=== PATIENT | female | born 2000 | race Caucasian/White ===

== ENCOUNTER 2023-05-24 22:33 | Day surgery (SDC) | payer SELFPAY ==
[2023-05-24] MEDS ORDERED: hydrALAZINE 20 MG/ML VIAL SLOW IVP PRN (23:42)
[2023-05-24 23:53] VITALS: BMI 25.4
[2023-05-24] MEDS ORDERED: Promethazine HCl 25 MG/ML VIAL IM PRN (23:59)
[2023-05-25] MEDS ORDERED: Meperidine HCl/PF 25 MG/ML VIAL IM SCH (00:15)
== END 2023-05-25 00:25 | disposition home or self-care (01) ==
LOC: CSHLD/OP 22:33
PROVIDERS: ATTEND Obstetrics & Gynecology
DX: O47.1 False labor at or after 37 completed weeks of gestation (principal); O99.820 Streptococcus B carrier state complicating pregnancy; Z79.899 Other long term (current) drug therapy; Z3A.37 37 weeks gestation of pregnancy
CPT/HCPCS: 96372; 99282; J2175; J2550

== ENCOUNTER 2023-06-03 05:25 | Inpatient (IN) | payer OTHER ==
[~2023-06-03 05:25] MED LIST: HYDROcodone/Acetaminophen 5/325 mg Tablet PO PRN; Ibuprofen 800 MG TAB PO PRN; Lactated Ringer's 1,000 ML IV SCH; Lidocaine 1% (PF) 30 ML VIAL SC PRN; Methylergonovine 0.2 MG/ML VIAL IM PRN; Misoprostol 200 MCG TAB PR PRN; Ondansetron PF 4 MG/2 ML Vial IVP PRN; Oxytocin 30 units/NS 500 ML 500 ML IV SCH; Promethazine HCl 25 MG/ML VIAL IM PRN; fentaNYL 50 mcg/mL 1 mL Vial SLOW IVP PRN; hydrALAZINE 20 MG/ML VIAL SLOW IVP PRN
[2023-06-03 05:53] VITALS: BMI 25.4
[2023-06-03 06:45] LABS: Hematocrit 32.8 % (34.9-44.5); Hemoglobin 10.8 g/dL (12.0-15.5); Mean Corpuscular HGB CONC 32.9 g/dL (32.0-36.0); Mean Corpuscular Hemoglobin 27.7 pg (27.0-33.0); Mean Corpuscular Volume 84.1 fl (81.6-98.3); Mean Platelet Volume 10.1 fl (7.4-10.4); Platelet Count 224 10x3/uL (150-450); RBC Distribution Width 13.7 % (11.5-14.5); White Blood Cell (WBC) Count 11.2 10x3/uL (3.5-10.5)
[2023-06-03 07:32] LABS: HBSAg Index 0.17 S/CO (0-0.99); Hep B Surf Ag - L&D Non-Reactive S/CO (NonReactive); Syphilis Antibody Nonreactive (Nonreactive); Syphilis Antibody Index 0.05 S/CO (<1.00 Non-Reactive)
[2023-06-03] MEDS ORDERED: Bupivacaine 0.25% HCL 30 ML VIAL ONE (08:00)
[2023-06-03] MEDS ORDERED: fentaNYL/Ropivacaine Epidural 100 ML ONE (09:52)
[2023-06-03] MEDS ORDERED: Ondansetron PF 4 MG/2 ML Vial IVP PRN (10:30)
[2023-06-03] MEDS ORDERED: Acetaminophen 325 MG TAB PO PRN (10:30)
[2023-06-03] MEDS ORDERED: Communication Order-Pharmacy FS SCH (10:30)
[2023-06-03] MEDS ORDERED: diphenhydrAMINE 50 MG/ML VIAL IVP PRN (10:30)
[2023-06-03] MEDS ORDERED: Lactated Ringer's 500 ML IV PRN (10:30)
[2023-06-03] MEDS ORDERED: Moisturizing Cream (Eucerin) 113 GM JAR TOP PRN (10:30)
[2023-06-03] MEDS ORDERED: Promethazine HCl 25 MG/ML VIAL IM PRN (10:30)
[2023-06-03] MEDS ORDERED: ePHEDrine Sulfate 50 MG/10 ML VIAL SLOW IVP PRN (10:30)
[2023-06-03] MEDS ORDERED: fentaNYL 2 mcg/Ropivacaine 0.2% Epidural 100 ML CADD EPIDURAL SCH (10:30)
[2023-06-03] MEDS ORDERED: Naloxone HCl 0.4 mg/ml Vial IVP PRN ×2 (10:30)
[2023-06-03] MEDS ORDERED: Boostrix 0.5 ML (Tdap) VIAL (>/=7 yrs of age) IM ONE (15:50)
[2023-06-03] MEDS ORDERED: Bisacodyl 10 MG SUPP PR PRN (15:50)
[2023-06-03] MEDS ORDERED: Milk Of Magnesia 30 ML UDCUP PO PRN (15:50)
[2023-06-03] MEDS ORDERED: Benzocaine-Menthol 82.5 ML CAN TOP PRN (15:50)
[2023-06-03] MEDS ORDERED: Oxytocin 30 units/NS 500 ML 500 ML IV SCH (15:50)
[2023-06-03] MEDS ORDERED: Lanolin Ointment 7 GM TUBE TOP PRN (15:50)
[2023-06-03] MEDS ORDERED: HYDROcodone/Acetaminophen 5/325 mg Tablet PO PRN (15:50)
[2023-06-03] MEDS ORDERED: Ibuprofen 800 MG TAB PO SCH ×2 (15:50→22:00)
[2023-06-03] MEDS ORDERED: hydrALAZINE 20 MG/ML VIAL SLOW IVP PRN (15:50)
[2023-06-03] MEDS: Ferrous Sulfate 325 MG TAB PO SCH (18:25)
[2023-06-03] MEDS: HYDROcodone/Acetaminophen 5/325 mg Tablet PO PRN (20:12)
[2023-06-03] MEDS: Docusate 100 MG CAP PO SCH (21:51)
[2023-06-03] MEDS: Ibuprofen 800 MG TAB PO SCH (23:48)
[2023-06-04] MEDS: HYDROcodone/Acetaminophen 5/325 mg Tablet PO PRN ×2 (02:53→13:17)
[2023-06-04] MEDS: Docusate 100 MG CAP PO SCH (08:19)
[2023-06-04] MEDS: Ferrous Sulfate 325 MG TAB PO SCH (08:19)
[2023-06-04] MEDS: Ibuprofen 800 MG TAB PO SCH ×2 (08:19→17:06)
[2023-06-04] MEDS ORDERED: Prenatal Vitamin 1 TAB PO SCH (09:00)
[2023-06-04 11:14] VITALS: BP 116/70; TEMP 98.1
== END 2023-06-04 17:40 | disposition home or self-care (01) | DRG 807 ==
LOC: CSHLD 05:25 → CSHPP 16:40
PROVIDERS: ADMIT Obstetrics & Gynecology; ATTEND Obstetrics & Gynecology
PROC: 10E0XZZ Delivery of Products of Conception, External Approach (ICD-10-PCS; principal; 2023-06-03)
DX: O80 Encounter for full-term uncomplicated delivery (principal); Z37.0 Single live birth; Z3A.39 39 weeks gestation of pregnancy
CPT/HCPCS: 51702; 85027; 86780; 86850; 86900; 86901; 87340; J2590; S0020